=== PATIENT | male | born 1970 | race Two or more races ===

== ENCOUNTER 2020-01-18 22:52 | Emergency (ER) | payer MEDICAID, OTHER ==
[~2020-01-18] VITALS: Ht 195.6 cm; Wt 95.3 kg
[~2020-01-18 22:52] MED LIST: BUPR200T2 PO; QUET100T PO
--- NOTE | 2020-01-18 23:20 | NUR ---
Dr. Hernandez at bedside for MSE.
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
[2020-01-18 23:32] VITALS: BP 142/99
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
== END 2020-01-18 23:33 | disposition left against medical advice (07) ==
LOC: ER 22:54
DX: S31.114A Laceration without foreign body of abdominal wall, left lower quadrant without penetration into peritoneal cavity, initial encounter (principal); W26.9XXA Contact with unspecified sharp object(s), initial encounter; Y92.89 Other specified places as the place of occurrence of the external cause
CPT/HCPCS: 93005; A4663

== ENCOUNTER 2020-01-20 00:47 | Emergency (ER) | payer MEDICAID ==
[~2020-01-20] VITALS: Ht 195.6 cm; Wt 95.3 kg
--- NOTE | 2020-01-20 01:06 | NUR ---
Dr. Boles at bedside for MSE.
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
[2020-01-20] MEDS ORDERED: IOHEXOL 300MG/ML 100 ML INFUS..BTL ONE (01:30)
[2020-01-20] MEDS ORDERED: SWABABLE VALVE TRANSFER SET EA MC ONE (01:30)
[2020-01-20] MEDS ORDERED: IV NORMAL SALINE 250 ML IV ONE (01:30)
--- NOTE | 2020-01-20 01:42 | NUR ---
[employer] at bedside
--- NOTE | 2020-01-20 01:45 | NUR ---
[employer] at bedside interviewing patient.
--- NOTE | 2020-01-20 01:54 | NUR ---
Pt out of ER for CT.
[2020-01-20 01:56] LABS: BASOPHILS # (AUTO) 0.1 K/uL (0.0-8.0); BASOPHILS % (AUTO) 0.8 % (0.0-2.0); EOSINOPHILS # (AUTO) 0.2 K/uL (0.0-0.7); EOSINOPHILS % (AUTO) 3.4 % (0.0-7.0); HEMATOCRIT 32.2 % (36.7-47.1); HEMOGLOBIN 10.8 g/dL (12.5-16.3); LYMPHOCYTES # (AUTO) 2.4 K/uL (20.0-40.0); LYMPHOCYTES % (AUTO) 35.8 % (20.5-51.5); MEAN CORPUSCULAR HEMOGLOBIN 30.1 uug (23.8-33.4); MEAN CORPUSCULAR HGB CONC 34 g/dL (32.5-36.3); MEAN CORPUSCULAR VOLUME 89.6 fL (73.0-96.2); MONOCYTES # (AUTO) 0.7 K/uL (2.0-10.0); NEUTROPHILS # (AUTO) 3.3 K/uL (1.8-8.9); PLATELET COUNT (AUTO) 232 K/uL (152-348); RED BLOOD CELL COUNT(AUTO) 3.59 MIL/uL (4.06-5.63); WHITE BLOOD COUNT (AUTO) 6.7 K/uL (3.6-10.2)
[2020-01-20 01:59] LABS: CREATININE 1.3 mg/dL (0.6-1.3); POTASSIUM 3.9 mmol/L (3.5-5.1)
--- NOTE | 2020-01-20 02:20 | NUR ---
Pt back to ER from CT.
[2020-01-20] MEDS ORDERED: PIPERACILLIN SODIUM/TAZOBACTAM 3.375 G in IV DEXTROSE 5% 50 ML IV ONE (02:30)
[2020-01-20] MEDS ORDERED: CEFAZOLIN 1 G in IV DEXTROSE 5% 50 ML IV ONE (02:30)
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
--- NOTE | 2020-01-20 02:37 | NUR ---
Dr. Boles spoke with Dr. Montgomery, patient accepted for transfer to [facility].
[2020-01-20] MEDS ORDERED: PIPERACILLIN/TAZOBACTAM/D5W 50 ML IV ONE (02:38)
--- NOTE | 2020-01-20 02:40 | NUR ---
Received call back from [facility], Marin ROSALES, stated that Dr. Montgomery couldn't accept the patient due to no room available. Dr. Boles made aware.
--- NOTE | 2020-01-20 02:47 | NUR ---
Dr Boles speaking with Dr Herman surgery contracts specialist. Unable to accept patient.
--- NOTE | 2020-01-20 02:50 | NUR ---
Dr. Boles speaking with Dr. Fall of [facility] .
--- NOTE | 2020-01-20 03:16 | NUR ---
[facility] UNABLE TO ACCEPT PATIENT AT THIS TIME. SPOKE TO MELISSA CHARGE NURSE FROM [facility] ER.
--- NOTE | 2020-01-20 03:35 | NUR ---
CALLED [facility] , SPOKE TO CHRISTIANA. WILL FAX FACESHEET AND SUMMARY REPORT TO REQUESTED BY CHRISTIANA.
--- NOTE | 2020-01-20 03:46 | NUR ---
Called [facility], spoke with Noe, facesheet and CT to be faxed to .
--- NOTE | 2020-01-20 03:55 | NUR ---
Dr. Boles speaking with Dr. Gómez of [facility], patient accepted for admission by Dr. Gómez. Awaiting patient transfer information from case finishing machine adjuster, Denise.
[2020-01-20 04:03] LABS: BASOPHILS % (AUTO) 0.5 % (0.0-2.0); EOSINOPHILS # (AUTO) 0.2 K/uL (0.0-0.7); EOSINOPHILS % (AUTO) 3.3 % (0.0-7.0); HEMATOCRIT 34.1 % (36.7-47.1); HEMOGLOBIN 11.4 g/dL (12.5-16.3); LYMPHOCYTES # (AUTO) 1.8 K/uL (20.0-40.0); LYMPHOCYTES % (AUTO) 27.6 % (20.5-51.5); MEAN CORPUSCULAR HGB CONC 34 g/dL (32.5-36.3); MEAN CORPUSCULAR VOLUME 89.5 fL (73.0-96.2); MONOCYTES # (AUTO) 0.8 K/uL (2.0-10.0); MONOCYTES % (AUTO) 11.5 % (0.0-11.0); NEUTROPHILS # (AUTO) 3.8 K/uL (1.8-8.9); NEUTROPHILS % (AUTO) 57.1 % (38.5-71.5); PLATELET COUNT (AUTO) 206 K/uL (152-348); RED BLOOD CELL COUNT(AUTO) 3.81 MIL/uL (4.06-5.63); WHITE BLOOD COUNT (AUTO) 6.7 K/uL (3.6-10.2)
[2020-01-20] MEDS ORDERED: IV NORMAL SALINE 500 ML IV STA (04:03)
--- NOTE | 2020-01-20 04:14 | NUR ---
Received call back from [facility], Patient accepted by Dr. Gómez, Patient going to room#8905, number to report to .
--- NOTE | 2020-01-20 05:29 | NUR ---
Received call from [facility], spoke with POWER Vaughan for patient transport to [facility].
--- NOTE | 2020-01-20 06:36 | NUR ---
Pt sleeping in bed, no acute signs of distress.
--- NOTE | 2020-01-20 07:12 | NUR ---
Report given to Carlos A ramirez.
--- NOTE | 2020-01-20 07:15 | NUR ---
Received report from outgoing RN, and assumed care for patient. Pt is sleeping, but arousable by touch and speech. Able to respod appropriately. Stable VS
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
== END 2020-01-20 07:48 | disposition short-term general hospital (02) ==
LOC: ER 00:51
DX: S31.619A Laceration without foreign body of abdominal wall, unspecified quadrant with penetration into peritoneal cavity, initial encounter (principal); W45.8XXA Other foreign body or object entering through skin, initial encounter; Y92.89 Other specified places as the place of occurrence of the external cause; Z59.0 Homelessness; K66.1 Hemoperitoneum; D64.9 Anemia, unspecified; J98.11 Atelectasis; K40.20 Bilateral inguinal hernia, without obstruction or gangrene, not specified as recurrent
CPT/HCPCS: 36415; 74177; 80048; 85025 ×2; 85730; 86850; 86900; 86901; 96361; 96374; 99291; J2543; Q9967; A4663; J7030; J7050

== ENCOUNTER 2020-01-26 22:27 | Emergency (ER) | payer MEDICAID, OTHER ==
[~2020-01-26] VITALS: Ht 195.6 cm; Wt 95.3 kg
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
[2020-01-26] MEDS ORDERED: CEphaleXIN 500 MG CAPSULE ONE (22:55)
--- NOTE | 2020-01-26 22:58 | NUR ---
Patient discharged to home in stable condition. Written and verbal after care instructions given. Patient verbalizes understanding of instructions. Stressed follow up or return to ER for worsening s/s.
[2020-01-26 22:59] VITALS: BP 138/74
[2020-01-26] MEDS ORDERED: CEphaleXIN 500 MG CAPSULE PO ONE (23:00)
== END 2020-01-26 22:59 | disposition home or self-care (01) ==
LOC: ER 22:29
DX: S31.61 Laceration without foreign body of abdominal wall with penetration into peritoneal cavity (principal); X99.1XXD Assault by knife, subsequent encounter; Z59.0 Homelessness
CPT/HCPCS: A4663